=== PATIENT | female | born 1980 | race Hispanic/Latino ===

== ENCOUNTER 2017-05-22 23:27 | Emergency (ER) | payer MEDICAID ==
[2017-05-22 23:31] VITALS: BMI 30.9
[2017-05-22 23:55] VITALS: BP 121/74; PULSE 85; RESP 18; O2SAT 100
--- NOTE | 2017-05-23 00:15 | ED PDOC ---
"Arrival/HPI - General Chief Complaint: Abdominal Pain Time Seen by Provider: 05/22/17 23:42 Historian: Patient - History of Present Illness Narrative History of Present Illness (Text): 05/23/17 00:07 Pt is a 36 y/o female, no significant pmh, c/o diffuse abdominal pain for the past 2 hours. Pt. stated that she had one meal today as she routinely does with no immediate symptoms, but suddenly had acute pain this evening that alarmed her. Denies chest pain, nausea, vomiting, diarrhea, back pain or groin pain, GIB, change in bladder or bowel, or any other medical or psychological complaints. LMP was 05/02/17 Time/Duration: Prior to Arrival Symptom Onset: Sudden Symptom Course: Unchanged Quality: Aching, Pressure Severity Level: 5 Activities at Onset: Rest Context: Home Past Medical History - Provider Review Nursing Documentation Reviewed: Yes - Travel History Have you recently traveled outside [place] w/in the past 3 mons?: No - Past History Past History: No Previous - Infectious Disease Hx of Infectious Diseases: None - Tetanus Immunization Tetanus Immunization: Unknown - Past Medical History Past Medical History: No Previous - Psychiatric Hx Substance Use: No - Surgical History Hx Cholecystectomy: Yes - Anesthesia Hx Anesthesia: Yes Hx Anesthesia Reactions: No Hx Malignant Hyperthermia: No - Suicidal Assessment Feels Threatened In Home Enviroment: No Family/Social History - Physician Review Nursing Documentation Reviewed: Yes Family/Social History: No Known Family HX Smoking Status: Never Smoked Hx Alcohol Use: No Hx Substance Use: No Hx Substance Use Treatment: No Allergies/Home Meds Allergies/Adverse Reactions: Allergies No Known Allergies Allergy (Verified 05/22/17 23:31) Review of Systems - Review of Systems Constitutional: Normal Eyes: Normal ENT: Normal Respiratory: Normal Cardiovascular: Normal Gastrointestinal: Abdominal Pain. absent: Normal, Stool Changes, Constipation, Diarrhea, Nausea, Vomiting, Appetite Changes, Hematochezia, Hematemesis, Anorexia, Food Intolerance, Other Genitourinary Female: Normal. absent: Dysuria, Frequency, Hematuria, Urine Output Changes, Vaginal Bleeding, Vaginal Discharge, Other Musculoskeletal: Normal Skin: Normal Neurological: Normal Endocrine: Normal Hemo/Lymphatic: Normal Psychiatric: Normal Physical Exam Vital Signs Reviewed: Yes Vital Signs Pulse Resp BP Pulse Ox 05/22/17 23:55 85 18 121/74 100 Temperature: Afebrile Blood Pressure: Normal Pulse: Regular Respiratory Rate: Normal Appearance: Positive for: Non-Toxic, Comfortable Pain Distress: Moderate Mental Status: Positive for: Alert and Oriented X 3 - Systems Exam Head: Present: Atraumatic, Normocephalic Pupils: Present: PERRL Extroacular Muscles: Present: EOMI Conjunctiva: Present: Normal Mouth: Present: Moist Mucous Membranes Neck: Present: Normal Range of Motion Respiratory/Chest: Present: Clear to Auscultation, Good Air Exchange. No: Respiratory Distress, Accessory Muscle Use Cardiovascular: Present: Regular Rate and Rhythm, Normal S1, S2. No: Murmurs Abdomen: Present: Tenderness (in all 4 quadrants), Normal Bowel Sounds. No: Distention, Peritoneal Signs, Rebound, Guarding, McBurney's Point Tender, Rovsing's Sign Present Back: Present: Normal Inspection. No: CVA Tenderness, Midline Tenderness, Pain with Leg Raise Upper Extremity: Present: Normal Inspection. No: Cyanosis, Edema Lower Extremity: Present: Normal Inspection. No: Edema Neurological: Present: GCS=15, CN II-XII Intact, Speech Normal Skin: Present: Warm, Dry, Normal Color. No: Rashes Psychiatric: Present: Alert, Oriented x 3, Normal Insight, Normal Concentration Medical Decision Making ED Course and Treatment: 05/23/17 00:15 Impression Pt is a 36 y/o female, no significant pmh, c/o diffuse abdominal pain for the past 2 hours. On exam, pt is A&Ox3, comfortable, mildly tender with firm palpation of the abdomen, no CVA tenderness, Plan Labs, CT w/o contrast, PPI assess and dispo Progress Note Pt received Toradol ivp Protonix Labs wnl and CT revealed right adnexal lesion and f/u w sonography Pt reported feeling much releif and ready to go home Advised to f/u with [employer] or PMD for recommended US Informed of medication use and SEs VSS and ambulated well out of ED with her family - Lab Interpretations Lab Results: 05/23/17 00:27 05/23/17 00:27 Lab Results 05/23/17 00:27: Sodium 140, Potassium 4.2, Chloride 105, Carbon Dioxide 24, Anion Gap 15, BUN 11, Creatinine 0.7, Est GFR ( Amer) > 60, Est GFR (Non- Af Amer) > 60, Random Glucose 109, Calcium 9.5, Total Bilirubin 0.5, AST 20, ALT 19, Alkaline Phosphatase 43, Total Protein 8.0, Albumin 4.3, Globulin 3.7, Albumin/Globulin Ratio 1.2 05/23/17 00:27: Urine Color Yellow, Urine Appearance Sl cloudy, Urine pH 5.5, Ur Specific [place] >= 1.030, Urine Protein Trace H, Urine Glucose (UA) Negative , Urine Ketones Negative, Urine Blood Trace-intact H, Urine Nitrate Negative, Urine Bilirubin Negative, Urine Urobilinogen 0.2, Ur Leukocyte Esterase Negative , Urine RBC 0 - 2, Urine WBC 1 - 3, Ur Epithelial Cells 3 - 4, Urine Bacteria Small, Urine Other Mucus 05/23/17 00:27: WBC 10.5 D, RBC 4.13, Hgb 11.6 L, Hct 34.9 L, MCV 84.5, MCH 28.1, MCHC 33.2, RDW 12.9, Plt Count 165, MPV 11.6 H - RAD Interpretation Narrative RAD Interpretations (Text): 05/23/17 01:54 CT Abdomen and Pelvis Without Intravenous Contrast CLINICAL HISTORY: 36 years old, female; Pain; Abdominal pain; Generalized; Prior surgery; Surgery date: 6+ months; Surgery type: HX cholecystectomy; Additional info: Diffuse abdominal pain TECHNIQUE: Axial computed tomography images of the abdomen and pelvis without intravenous contrast. All CT scans at this facility use one or more dose reduction techniques, viz.: automated exposure control; ma/kV adjustment per patient size (including targeted exams where dose is matched to indication; i.e. head); or iterative reconstruction technique. Coronal and sagittal reformatted images were created and reviewed. COMPARISON: No relevant prior studies available. FINDINGS: Limitations: Lack of intravenous contrast. Motion artifact - mild. Lung bases: No acute findings. Heart: Borderline cardiomegaly. Mediastinum: Small hiatal hernia. ABDOMEN: Liver: Unremarkable. Gallbladder and bile ducts: Cholecystectomy. No significant ductal dilation. Pancreas: Unremarkable. No ductal dilation. Spleen: No splenomegaly. Adrenals: No mass. Kidneys and ureters: No renal calculi. No hydronephrosis. Stomach and bowel: Few scattered diverticula within colon. No associated inflammatory stranding. No definite mural thickening. No obstruction. Appendix: Normal caliber. Tip adjacent to fluid within lower abdomen/upper pelvis, limiting evaluation for inflammation. [facility] | Final Radiology Report CONFIDENTIALITY STATEMENT This report is intended only for use by the referring physician, and only in accordance with law. If you received this in error, call [phone]. Page 2 of 2 PELVIS: Bladder: Unremarkable. No stones. Reproductive: Fallopian tube implants. 2.8 x 3.5 x 3.6 cm hypodense lesion within right adnexal region. ABDOMEN and PELVIS: Intraperitoneal space: Small free fluid within lower abdomen/pelvis. No free air. Bones/joints: Probable bone islands. No acute fracture. Soft tissues: Small umbilical hernia containing fat. Vasculature: Unremarkable. No aneurysm. Lymph nodes: No pathologically enlarged lymph nodes. IMPRESSION: 1. Right adnexal lesion. Recommend ultrasound. 2. Incidental/non-acute findings are described above Radiology Orders: 05/23/17 00:19 ABDOMEN & PELVIS [ABD & PELVIS W/O PO OR IV CONT] [CT] Stat - Medication Orders Current Medication Orders: Discontinued Medications Pantoprazole Sodium (Protonix Inj) 40 mg IVP STAT STA Stop: 05/23/17 00:22 Last Admin: 05/23/17 00:45 Dose: 40 mg IVP Administration Document 05/23/17 00:45 DMITRY (Rec: 05/23/17 00:59 [id number] Charges for Administration # of IVP Administrations 1 Disposition/Present on Arrival - Present on Arrival Any Indicators Present on Arrival: Yes History of DVT/PE: No History of Uncontrolled Diabetes: No Urinary Catheter: No History of Decub. Ulcer: No History Surgical Site Infection Following: None - Disposition Have Diagnosis and Disposition been Completed?: Yes Diagnosis: Gastritis, Adnexal pain Disposition: HOME/ ROUTINE Disposition Time: :59 Patient Plan: Discharge Condition: GOOD Discharge Instructions (ExitCare): Gastritis, Acute Abdomen (Belly Pain) Additional Instructions: Margaux, Please follow up with your Primary doctor in the next 24-48 hours and take the Protonix as instructed. Given the CT report, it is recommended that your see your [employer] to have an ultrasound examination to help explain some of your abdominal pain. If you have worsening of symptoms, return to the Emergency department. All the best in your recovery! PAULO Mills Prescriptions: Naproxen [Naprosyn] 500 mg PO BID 5 Days #10 tablet Pantoprazole Sodium [Protonix] 20 mg PO DAILY #10 tab Forms: [facility] (Polish), WORK NOTE"
[2017-05-23 01:14] LABS: HEMOGLOBIN 11.6 g/dL (12.0-16.0); MEAN CELL VOLUME 84.5 fl (80.0-105.0); MEAN CORPUSCULAR HEMOGLOBIN 28.1 pg (25.0-35.0); MEAN CORPUSCULAR HGB CONC 33.2 g/dl (31.0-37.0); MEAN PLATELET VOLUME 11.6 fl (7.0-11.0); RBC 4.13 10^6/uL (3.5-6.1); RED CELL DISTRIBUTION WIDTH 12.9 % (11.5-14.5); WHITE BLOOD COUNT 10.5 10^3/ul (4.5-11.0)
[2017-05-23 01:15] LABS: PH,URINE 5.5 (4.7-8.0); URINE BILIRUBIN NEGATIVE (NEGATIVE); URINE BLOOD TRACE-INTACT (NEGATIVE); URINE GLUCOSE (UA) NEGATIVE (NEGATIVE); URINE LEUKOCYTE ESTERASE NEGATIVE Leu/uL (NEGATIVE); URINE PROTEIN TRACE mg/dL (<30 mg/dL); URINE UROBILINOGEN 0.2 E.U./dL (<1 E.U./dL)
[2017-05-23 01:17] LABS: URINE APPEARANCE SL CLOUDY (CLEAR); URINE COLOR YELLOW (YELLOW)
[2017-05-23 01:19] LABS: ALB/GLOB RATIO 1.2 (1.1-1.8); ALBUMIN 4.3 g/dL (3.0-4.8); ALT/SGPT 19 U/L (7-56); AST/SGOT 20 U/L (14-36); BLOOD UREA NITROGEN 11 mg/dL (7-21); CALCIUM 9.5 mg/dL (8.4-10.5); GFR AFRICAN-AMERICAN > 60; GFR NON-AFRICAN AMERICAN > 60
[2017-05-23 01:30] LABS: URINE BACTERIA SMALL (NEG); URINE RBC 0 - 2 /hpf (0-2)
--- NOTE | 2017-05-23 01:49 | CT ---
EXAM: CT Abdomen and Pelvis Without Intravenous Contrast CLINICAL HISTORY: 36 years old, female; Pain; Abdominal pain; Generalized; Prior surgery; Surgery date: 6+ months; Surgery type: HX cholecystectomy; Additional info: Diffuse abdominal pain TECHNIQUE: Axial computed tomography images of the abdomen and pelvis without intravenous contrast. All CT scans at this facility use one or more dose reduction techniques, viz.: automated exposure control; ma/kV adjustment per patient size (including targeted exams where dose is matched to indication; i.e. head); or iterative reconstruction technique. Coronal and sagittal reformatted images were created and reviewed. COMPARISON: No relevant prior studies available. FINDINGS: Limitations: Lack of intravenous contrast. Motion artifact - mild. Lung bases: No acute findings. Heart: Borderline cardiomegaly. Mediastinum: Small hiatal hernia. ABDOMEN: Liver: Unremarkable. Gallbladder and bile ducts: Cholecystectomy. No significant ductal dilation. Pancreas: Unremarkable. No ductal dilation. Spleen: No splenomegaly. Adrenals: No mass. Kidneys and ureters: No renal calculi. No hydronephrosis. Stomach and bowel: Few scattered diverticula within colon. No associated inflammatory stranding. No definite mural thickening. No obstruction. Appendix: Normal caliber. Tip adjacent to fluid within lower abdomen/upper pelvis, limiting evaluation for inflammation. PELVIS: Bladder: Unremarkable. No stones. Reproductive: Fallopian tube implants. 2.8 x 3.5 x 3.6 cm hypodense lesion within right adnexal region. ABDOMEN and PELVIS: Intraperitoneal space: Small free fluid within lower abdomen/pelvis. No free air. Bones/joints: Probable bone islands. No acute fracture. Soft tissues: Small umbilical hernia containing fat. Vasculature: Unremarkable. No aneurysm. Lymph nodes: No pathologically enlarged lymph nodes. IMPRESSION: 1. Right adnexal lesion. Recommend ultrasound. 2. Incidental/non-acute findings are described above.
== END 2017-05-23 02:19 | disposition home or self-care (01) ==
LOC: ED 23:27
DX: K29.70 Gastritis, unspecified, without bleeding (principal); R10.2 Pelvic and perineal pain
CPT/HCPCS: 74176; 80053; 81001; 85027; 96374; 99285; C9113